=== PATIENT | male | born 1970 | race Caucasian/White ===

== ENCOUNTER → 2024-05-05 10:59 | Outpatient (REF) | payer BC, SELFPAY | LOC: RAD 10:59 | PROVIDERS: ATTENDING PHYSICIAN Family Medicine | DX: E03.9 Hypothyroidism, unspecified (principal); R05.1 Acute cough | CPT/HCPCS: 71046; 76536 ==

== ENCOUNTER → 2024-05-20 06:50 | Outpatient (REF) | payer BC, SELFPAY | LOC: RSP 06:50 | PROVIDERS: ATTENDING PHYSICIAN Family Medicine | DX: I25.118 Atherosclerotic heart disease of native coronary artery with other forms of angina pectoris (principal); R05.1 Acute cough | CPT/HCPCS: 94727; 94729; 88738; 94010 ==

== ENCOUNTER 2024-09-29 10:15 | Emergency (ER) | payer BC, SELFPAY ==
[2024-09-29 10:15] VITALS: BMI 28.7
[2024-09-29 10:18] VITALS: BP 142/98
[2024-09-29 10:33] VITALS: BP 143/75
[2024-09-29] MEDS: NSS 500 IV (10:59)
[2024-09-29 11:00] VITALS: BP 137/98
[2024-09-29] MEDS: TORADOL 15 MG IV (11:00)
[2024-09-29] MEDS: PROTONIX IV 40 MG IV (11:01)
[2024-09-29 11:02] LABS: Hematocrit 41.1 % (39.0-52.0); Hemoglobin 14.4 g/dL (13.0-18.0); Mean Corp Hgb Conc. 35.0 g/dL (33.0-37.0); Mean Corpuscular Volume 86.2 fL (80.0-94.0); Nucleated Red Blood Cells % 0 % (-); Platelet Count 208 10^3/uL (130-400); Red Cell Dist. Width 13.7 % (11.5-14.5)
[2024-09-29 11:23] LABS: ALT (SGPT) 23 U/L (0-50); AST (SGOT) 23 U/L (17-59); Albumin 4.6 g/dl (3.5-5.0); Alkaline Phosphatase 75 U/L (38-126); Blood Urea Nitrogen 7 mg/dl (9-20); Calcium 10.7 mg/dl (8.4-10.2); Carbon Dioxide 22 mmol/L (22-30); Chloride 106 mmol/L (98-107); Estimated Creatinine Clearance 95 ml/min; Glucose 114 mg/dl (70-99); Potassium 4.1 mmol/L (3.5-5.1); Sodium 137 mmol/L (135-145); Total Protein 7.7 g/dl (6.3-8.2); eGFR > 60.00
--- NOTE | 2024-09-29 11:31 | ED.GENMED ---
History of Present Illness
General
Chief Complaint: Abdominal Pain
Source: patient
Exam Limitations: none
Time Seen by Provider: 09/29/24 10:26
Nursing documentation reviewed up to this point in time: agreed with
History of Present Illness
History of Present Illness:
Patient presents to ED secondary to persistent lower abdominal pain over the past 5 days. Abdominal pain described as sharp, nonradiating, without any alleviating factors, but worse with any positional changes. Patient also reports 2 loose bowel
movements. Denies nausea or vomiting. Denies trauma. Denies back pain. Denies difficulty with urination. Denies recent travel. Denies sick contact. Denies recent change in medications or diet. Denies previous history of similar symptoms.
Patient reports having received normal colonoscopy in the recent past.
Past History
Past History
ED Past Medical History: CAD, HTN, Hypercholesterolemia, TN and Hypothyroidism
ED Past Surgical History: Appendectomy
Social History
Tobacco: Former smoker
Alcohol: Occasional
Drug: None
Personal:
Living: with family
Employment: Employed
Family History
Family History: Hypertension
Review of Systems
Review of Systems
Allergies reviewed?: Yes
All Other Systems: ROS reviewed and negative except as documented in HPI and ROS
Constitutional: Reports no symptoms; Denies fever or chills
ABD/GI: Reports abdominal pain and diarrhea; Denies vomiting
Musculoskeletal: Reports no symptoms
Skin: Reports no symptoms
Neurological: Reports no symptoms
Phy Exam
Physical Exam
Physical Exam:
Physical Exam
General: mild painful distress, not acutely ill. afebrile
Head: nc/at. eomi
Neck: supple. no meningeal signs.
Heart: s1/s2 regular rate and rhythm
Lungs: no acute respiratory distress. clear bilaterally
Abdomen: normal bowel sounds. no distention. mild LLQ tenderness to palpation
Neuro: alert and oriented x 3. no focal neurological deficits
Skin: no rash
Psychiatric: well kept. interactive and cooperative
Extremities: no edema. no calf tenderness.
Course
Orders/Labs/Results
Orders:
Orders
09/29/24 10:42
Ketorolac [Toradol] 15 mg IV NOW STA
Pantoprazole [Protonix IV] 40 mg IV NOW STA
09/29/24 10:43
CT Abd/pelvis W Iv Cont Urgent
Comment:
Reason For Exam: LLQ pain
0.9% Sodium Chloride 500 ml [Nss] 500 ml IV BOLUS
09/29/24 10:51
Complete Blood Count/With Diff Urgent
09/29/24 10:53
Comprehensive Metabolic Panel Urgent
Abnormal Lab Results
09/29/24 09/29/24
10:51 10:53
Absolute Monos (auto) 0.7 H 10^3/uL
(0.1-0.6)
Monocytes % 10.3 H %
(1.7-9.3)
BUN 7 L mg/dl
(9-20)
Glucose 114 H mg/dl
(70-99)
Calcium 10.7 H mg/dl
(8.4-10.2)
09/29/24 10:51
09/29/24 10:53
Vital Signs
Initial and Last Documented VS:
Initial Vital Signs
Temp Pulse Resp BP Pulse Ox
98.0 F 78 16 142/98 98
09/29/24 10:18 09/29/24 10:18 09/29/24 10:18 09/29/24 10:18 09/29/24 10:18
Last Documented Vital Signs
Temp Pulse Resp BP Pulse Ox
98.0 F 51 12 137/98 95
09/29/24 10:18 09/29/24 11:30 09/29/24 11:30 09/29/24 11:00 09/29/24 11:33
MDM/Problems Addressed
MDM/Problems Addressed:
CT report reviewed and discussed with patient. Patient otherwise remains afebrile, hemodynamically stable, and appears comfortable. Patient will be discharged home in stable condition with recommendation to follow-up with PCP for reevaluation, or
return to ED with worsening symptoms. Advised NSAIDs at home.
*Pulse Oximetry
SaO2: 95
Oxygen Mode of Delivery: Room air
Patient hypoxic: no
*Critical Care Note
Total Time (30-74mins, 75-104mins- exclusive of procedures): Not Applicable
ED Attending Note
-
Portions of this chart may have been created with voice recognition software.� Occasional wrong word or��sound alike� substitutions may have occurred due to the inherent limitations of voice recognition software.
Discharge Plan
Departure
Patient Disposition: Home (Routine Discharge)
Date of Disposition: 09/29/24
Time of Disposition: 13:23
Patient with high blood pressure during this ER visit?: Yes
Condition: Good
Discharge Problem:
Abdominal pain
Instructions: Abdominal Pain
Prescriptions:
No Action
aspirin 81 MG tablet,delayed release (DR/EC)
81 mg PO DAILY
atorvastatin 40 MG tablet
40 mg PO DAILY
allopurinol 100 MG tablet
100 mg PO BID
levothyroxine 125 MCG tablet
125 mcg PO DAILY
metoprolol tartrate 50 MG tablet
50 mg PO BID
zolpidem 10 MG tablet
10 mg PO PRN PRN (Reason: sleep)
tramadol 50 MG tablet
50 mg PO TIDPRN PRN (Reason: severe pain) Qty: 15 0RF
naproxen sodium 220 MG tablet
440 mg PO BIDPRN PRN (Reason: pain) Qty: 1 0RF
ascorbic acid (vitamin C) [Vitamin C] 500 MG tablet
1,000 mg PO BID Qty: 56 0RF
Rx Instructions:
Take 1,000 mg twice a day for 14 days
aspirin 81 MG tablet,chewable
81 mg PO DAILY Qty: 14 0RF
Rx Instructions:
Take 81 mg daily for 14 days
zinc sulfate 220 MG capsule
220 mg PO DAILY Qty: 14 0RF
Rx Instructions:
Take 220 mg daily for 14 days
Referrals:
Eleno Escalera DO [Family Provider, Family Practice]
Activity Restrictions/Additional Instructions:
As discussed, please follow-up with your primary care physician with any further concerns. Please consider return to ED with your symptoms, i.e. fever/worsening pain/vomiting.
Interventions
Interventions:
*Risk Screen - Suicide Last Done: 09/29/24 10:18
*Neglect/Abuse Screening Last Done: 09/29/24 10:18
*Nursing Disposition Last Done: 09/29/24 13:40
RC-Tapcne-Gxydtyhklq Assessment Last Done: 09/29/24 10:53
Discharge Date and Time
Discharge Date/Time: 09/29/24 13:41
Print Language: FAROESE
== END 2024-09-29 13:41 | disposition home or self-care (01) ==
LOC: EMR 10:15
PROVIDERS: EMERGENCY PHYSICIAN Emergency Medicine; FAMILY PHYSICIAN Family Medicine
DX: R10.30 Lower abdominal pain, unspecified (principal); I25.10 Atherosclerotic heart disease of native coronary artery without angina pectoris; I10 Essential (primary) hypertension; E78.00 Pure hypercholesterolemia, unspecified; E03.9 Hypothyroidism, unspecified; I25.2 Old myocardial infarction; Z90.49 Acquired absence of other specified parts of digestive tract; Z87.891 Personal history of nicotine dependence
CPT/HCPCS: 96374; 96375; 96361; 99284; 74177; 80053; 85025; Q9967

== ENCOUNTER → 2025-02-16 08:33 | Outpatient (REF) | payer BC, SELFPAY | LOC: RAD 08:33 | PROVIDERS: ATTENDING PHYSICIAN Nurse Practitioner Family; FAMILY PHYSICIAN Family Medicine | DX: E34.9 Endocrine disorder, unspecified (principal) | CPT/HCPCS: 78071; A9500 ==